=== PATIENT | male | born 1960 | race Caucasian/White ===

== ENCOUNTER 2018-01-19 09:53 | Emergency (ER) | payer MEDICAID ==
[~2018-01-19] VITALS: Ht 167.6 cm; Wt 95.2 kg
[2018-01-19 10:02] VITALS: BP 134/81; Ht 167.6 cm; Wt 95.2 kg
== END 2018-01-19 11:13 | disposition home or self-care (01) ==
LOC: ED 09:53
DX: S93.401A Sprain of unspecified ligament of right ankle, initial encounter (principal); X58.XXXA Exposure to other specified factors, initial encounter; Y93.89 Activity, other specified; Y92.89 Other specified places as the place of occurrence of the external cause; Y99.8 Other external cause status

== ENCOUNTER 2018-01-28 11:38 | Emergency (ER) | payer MEDICAID ==
[~2018-01-28] VITALS: Ht 172.7 cm; Wt 95.2 kg
[2018-01-28 12:12] VITALS: Ht 172.7 cm; Wt 95.2 kg
[2018-01-28 14:46] VITALS: BP 136/88
== END 2018-01-28 14:46 | disposition home or self-care (01) ==
LOC: ED 11:38
DX: S86.912A Strain of unspecified muscle(s) and tendon(s) at lower leg level, left leg, initial encounter (principal); X58.XXXA Exposure to other specified factors, initial encounter; Y93.89 Activity, other specified; Y92.89 Other specified places as the place of occurrence of the external cause; Y99.8 Other external cause status
CPT/HCPCS: Q0092